=== PATIENT | male | born 2000 | race Caucasian/White ===

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

== ENCOUNTER 2021-05-04 20:22 | Emergency (ER) | payer BC, SELFPAY ==
[2021-05-04 20:45] VITALS: BP 145/97; PULSE 110; RESP 16; TEMP 36.6; O2SAT 98; BMI 36.0
--- NOTE | 2021-05-04 21:00 | HMH.EDUTC ---
[facility] [place] Disposition Clinical Impression: Viral syndrome, Exposure to COVID-19 virus Asthma Qualifiers: Asthma severity: unspecified severity Asthma persistence: unspecified Asthma complication type: unspecified Qualified Code(s): J45.909 - Unspecified asthma, uncomplicated Disposition: Home, Self-Care Condition on Discharge: Good Instructions: DI for COVID-19 (Suspected or Confirmed ), Preventing the Spread of Coronavirus Discharge Instructions Additional Instructions: Drink plenty of fluids. Take tylenol or ibuprofen for pain or fever. Take the medications as directed. Follow up with your regular doctor. GO TO THE ER FOR ANY WORSENING SYMPTOMS Quarantine until you know the results of your covid-19 test. If it is positive, the health department should call you and give you further instructions about your length of Quarantine and other things. Notify your school or workplace of your results and follow their instructions regarding return to work/school. Prescriptions: Brompheniramine/Pseudoephed/Dm [Bromfed Dm Cough Syrup] 5 ml PO Q6HP PRN #240 ml PRN Reason: Cough Transmission Status: Received by [id number] methylPREDNISolone [Medrol] 4 mg PO DIRECTED 6 Days #21 packet Transmission Status: Received by [id number] Azithromycin [Z-Talon 250mg Tab*] 250 mg PO UD DOSE PK #6 tab Transmission Status: Received by [id number] Referrals: Scott Viveros [Primary Care Provider] - Forms: Work/School Release Time of Disposition: 21:43 Medical Decision Making - Medical Records Medical records reviewed: No: I reviewed the patient's medical records. - Tre Inquiry Pt receiving controlled substance: No Vital Signs: 05/04/21 20:45 05/04/21 21:47 Temperature 98 F 98.0 F Temperature Source Oral Oral Pulse Rate 110 H Pulse Rate [Apical] 110 H Respiratory Rate 16 18 Blood Pressure 145/97 H Blood Pressure [Right Arm] 145/97 H Blood Pressure Mean [Right Arm] 113 Blood Pressure Source Automatic Cuff Blood Pressure Source [Right Arm] Automatic Cuff Blood Pressure Position Sitting Blood Pressure Position [Right Arm] Sitting 02 Sat by Pulse Oximetry 98 Oxygen Delivery Method Room Air Room Air - Lab Data Lab results reviewed: Yes: I reviewed the patient's lab results. Lab Results 05/04/21 21:48: Strep Scn Rapid Clinic Negative Orders (Tests/Meds): ORDERS Category Date Time Status Strep Screen Confirmation Stat Micro 05/04/21 21:48 Received [facility] HPI - General Stated complaint: covid test Time Seen by Provider: 05/04/21 21:01 Mode of Arrival: Ambulatory Source of Information: Patient Limitations: No Limitations Description of Symptoms (Recalled from Triage Doc. by RN): covid test HEENT Symptoms (Recalled from RN notes): Yes Resp Symptoms (Recalled from RN notes): Yes Skin Symptoms (Recalled from RN notes): No MS Symptoms (Recalled from RN notes): No Functional Status (Recalled from RN notes): na - History of Present Illness Provider Complaint: He states that he has felt congested, had a dry cough and ran a low grade fever since yesterday. His taste and smell has been altered today. He was exposed to covid-19 last week. - Related Data Previous Rx's Medication Instructions Recorded Azithromycin [Z-Talon 250mg Tab*] 250 mg PO UD DOSE PK #6 tab 05/04/21 Brompheniramine/Pseudoephed/Dm 5 ml PO Q6HP PRN #240 ml 05/04/21 [Bromfed Dm Cough Syrup] methylPREDNISolone [Medrol] 4 mg PO DIRECTED 6 Days #21 05/04/21 packet Allergies Allergy/AdvReac Type Severity Reaction Status Date / Time No Known Allergies Allergy Verified 11/27/18 09:53 - Worker's Comp Is this a Worker's Comp case?: No [facility] History - Hepatitis A Screen Drug use history?: No High risk sexual behaviors?: No History of sexually transmitted infection?: No Currently employed?: No Childcare worker?: Yes Do you have indoor plumbing?: No Do you have electricit
[2021-05-04 21:47] VITALS: BP 145/97; PULSE 110; RESP 18; TEMP 36.7; O2SAT 98
[2021-05-05 10:05] LABS: UTC Strep Screen (Rapid) Negative (Negative)
== END 2021-05-04 21:49 | disposition home or self-care (01) ==
PROVIDERS: Emergency Provider Nurse Practitioner Family; PCP Internal Medicine
DX: B34.9 Viral infection, unspecified (principal); Z20.822 Contact with and (suspected) exposure to COVID-19; J45.909 Unspecified asthma, uncomplicated
CPT/HCPCS: 87880; 99202; C9803; G0463; U0003; U0005

== ENCOUNTER 2021-06-25 14:09 | Emergency (ER) | payer BC, SELFPAY ==
[2021-06-25 14:52] VITALS: BMI 34.9
--- NOTE | 2021-06-25 14:53 | CT_ITS ---
PROCEDURE: CT HEAD/BRAIN WO CON CLINICAL INDICATION: syncopal epiosde COMPARISON: No exams were available for comparison TECHNIQUE: Axial images obtained. All CT scans at the facility use one or more dose reduction, viz: automated exposure control, ma/kV adjustment per patient size (including targeted exams where dose is matched to indication, i.e. head), or iterative reconstruction technique. FINDINGS: No midline shift, mass effect, intracranial hemorrhage, hydrocephalus, or extra-axial fluid collection is evident. The calvarium has an unremarkable appearance. No mastoid effusion. No sinus air-fluid level. IMPRESSION: No acute intracranial finding Dictated by: Sigifredo Auguste MD 06/25/2021 16:11 Sigifredo Auguste MD in [place] 06/25/2021 16:11
--- NOTE | 2021-06-25 14:53 | CT_ITS ---
PROCEDURE: CT CERVICAL SPINE WO CON CLINICAL INDICATION: syncopal epiosde COMPARISON: No exams were available for comparison TECHNIQUE: Axial images obtained with sagittal and coronal reformats. All CT scans at the facility use one or more dose reduction, viz: automated exposure control, ma/kV adjustment per patient size (including targeted exams where dose is matched to indication, i.e. head), or iterative reconstruction technique. Axial spiral CT scanning performed of the cervical spine beginning at the base of the skull and continuing to the upper T-spine. 3-D multiplanar reconstruction with 3-D manipulation of volumetric data set in image rendering was completed by the radiologist and/or technologist with the supervision of the radiologist on independent workstation. FINDINGS: Normal alignment. No acute fracture or dislocation. There is mild foraminal narrowing on the right and C3-C4. No lytic or blastic change. Lung apices are clear. IMPRESSION: No acute fracture Dictated by: Sigifredo Auguste MD 06/25/2021 16:14 Sigifredo Auguste MD in [place] 06/25/2021 16:14
[2021-06-25 15:00] VITALS: BP 145/91; PULSE 88; RESP 16; TEMP 36.8; O2SAT 97; BMI 34.9
--- NOTE | 2021-06-25 15:00 | HMH.EDGENADL ---
ED Disposition Clinical Impression: Syncope and collapse Disposition: Home, Self-Care Condition on Discharge: Good Instructions: DI for Syncope in Adults (Fainting) Additional Instructions: Call your primary care doctor tomorrow to arrange follow-up appointment. Return to the emergency department if fainting recurs. Referrals: Scott Viveros [Primary Care Provider] - - Critical Care Critical Care Time: No Attestation: On 06/25/21, the high probability of a clinically significant, sudden or life threatening deterioration of the following system(s) required my full and direct attention, intervention and personal management. The time I documented below is in addition to time spent performing reported procedures but includes the following listed in this critical care notation. Medical Decision Making - Tre Inquiry Pt receiving controlled substance: No Vital Signs: 06/25/21 15:00 06/25/21 15:16 06/25/21 16:35 Temperature 98.2 F Temperature Source Oral Pulse Rate [Orthostatic Lying Right Brachial] 84 Pulse Rate [Orthostatic Sitting Left Brachial] 85 Pulse Rate [Orthostatic Standing Right Brachial] 84 Pulse Rate [Right] 88 80 Respiratory Rate 16 16 Blood Pressure [Orthostatic Lying Right Arm] 146/87 H Blood Pressure [Orthostatic Sitting Right Arm] 144/84 H Blood Pressure [Orthostatic Standing Right Arm] 146/88 H Blood Pressure [Right Arm] 145/91 H 132/70 Blood Pressure Mean [Right Arm] 109 90 Blood Pressure Source [Right Arm] Automatic Cuff Automatic Cuff Blood Pressure Position [Right Arm] Sitting Sitting 02 Sat by Pulse Oximetry 97 98 Oxygen Delivery Method Room Air Room Air 06/25/21 17:39 Temperature Temperature Source Pulse Rate [Orthostatic Lying Right Brachial] Pulse Rate [Orthostatic Sitting Left Brachial] Pulse Rate [Orthostatic Standing Right Brachial] Pulse Rate [Right] 70 Respiratory Rate 16 Blood Pressure [Orthostatic Lying Right Arm] Blood Pressure [Orthostatic Sitting Right Arm] Blood Pressure [Orthostatic Standing Right Arm] Blood Pressure [Right Arm] 135/72 Blood Pressure Mean [Right Arm] 93 Blood Pressure Source [Right Arm] Automatic Cuff Blood Pressure Position [Right Arm] Sitting 02 Sat by Pulse Oximetry 100 Oxygen Delivery Method Room Air - Lab Data Lab Results 06/25/21 14:48: WBC 8.6, RBC 5.40, Hgb 15.1, Hct 44.3, MCV 82.0, MCH 28.0, MCHC 34.2, RDW 13.7, Plt Count 322, MPV 7.7, Neut % (Auto) 67.7, Lymph % (Auto) 23.6, [place] % (Auto) 4.8, Eos % (Auto) 3.0, Baso % (Auto) 0.9, Neut # (Auto) 5.8, Lymph # (Auto) 2.0, [place] # (Auto) 0.4, Eos # (Auto) 0.3, Baso # (Auto) 0.1 06/25/21 14:48: Sodium 140, Potassium 3.8, Chloride 103, Carbon Dioxide 29, Anion Gap 11.8, BUN 9, Creatinine 0.90, Estimated Creat Clear 223, Estimated GFR 108, Est GFR ( Amer) 130, Glucose 102 H, Calcium 9.5, Total Bilirubin 0.5, AST 35, ALT 45, Alkaline Phosphatase 51, Total Protein 7.2, Albumin 4.5, Globulin 2.7, Albumin/Globulin Ratio 1.7 06/25/21 16:28: Urine Color Yellow, Urine Appearance Clear, Urine pH 7.0, Ur Specific [place] 1.020, Urine Protein Negative, Urine Glucose (UA) Negative, Urine Ketones Negative, Urine Blood Negative, Urine Nitrate Negative, Urine Bilirubin Negative, Urine Urobilinogen 0.2, Ur Leukocyte Esterase Negative, Urine RBC None, Urine WBC Occasional, Ur Squamous Epith Cells None, Urine Bacteria Trace 06/25/21 16:28: Urine Opiates Screen Negative, Urine Methadone Screen Negative, Ur Barbituates Screen Negative, Ur Phencyclidine Scrn Negative, Ur Amphetamines Screen Negative, U Benzodiazepines Scrn Negative, Urine Cocaine Screen Negative, U Marijuana (THC) Screen Negative Result diagrams: 06/25/21 14:48 06/25/21 14:48 - CT Data CT Scan: Head, C-Spine Time Received: 16:[address] Reviewed: Yes: I have viewed the radiologist's interpretation Findings Narrative: PROCEDURE: CT HEAD/BRAIN WO CON CLINICAL INDICATION: syncopal epiosde COMPARISON:
[2021-06-25 15:04] LABS: Basophils # 0.1 K/mm3 (0-0.2); Basophils % 0.9 % (0.1-2.0); Eosinophils # 0.3 K/mm3 (0.0-0.4); Hematocrit 44.3 % (42.0-52.0); Hemoglobin 15.1 g/dL (14.1-18.0); Lymphocytes % 23.6 % (10-50); Mean Corpuscular HGB Conc 34.2 g/dL (31.8-35.4); Mean Platelet Volume 7.7 fl (7.4-10.4); Monocytes # 0.4 K/mm3 (0.1-1.0); Monocytes % 4.8 % (1.7-9.3); Neutrophils # 5.8 K/mm3 (1.8-7.8); Neutrophils % 67.7 % (37.0-80.0); Platelet Count 322 K/mm3 (142-424); Red Cell Distribution Width 13.7 % (11.5-17.5); White Blood Count 8.6 K/mm3 (4.5-13.0)
[2021-06-25 15:09] LABS: Alanine Aminotransferase 45 U/L (12-78); Albumin Level 4.5 g/dl (3.5-5.0); Albumin/Globulin Ratio 1.7 (1.1-1.8); Alkaline Phosphatase 51 U/L (38-126); Anion Gap 11.8 mEq/L (5-15); Aspartate Amino Transferase 35 U/L (17-59); Bilirubin,Total 0.5 mg/dl (0.2-1.3); Blood Urea Nitrogen 9 mg/dl (9-20); Calcium 9.5 mg/dl (8.4-10.2); Carbon Dioxide 29 mmol/L (22.0-30.0); Chloride 103 mmol/L (98-107); Creatinine Clearance Estimated 223 mL/min (50-200); Estimated Glomerular Filt Rate 108 ml/min (>60); GFR (African American) 130 ML/MIN (>60); Globulin 2.7 g/dL (1.3-3.2); Glucose 102 mg/dl (74-100); Potassium 3.8 mmoL/L (3.5-5.1); Sodium 140 mmol/L (136-145); Total Protein,Serum 7.2 g/dl (6.3-8.2)
[2021-06-25 15:16] VITALS: BP 144/84; BP 146/87; BP 146/88; PULSE 84; PULSE 85
--- NOTE | 2021-06-25 15:43 | ECG_ITS ---
APPROVED REPORT Exam: Resting ECG HR:61 bpm ECG Measurements Heart Rate 61 AXES VT 154 P 66 QRSd 96 QRS 79 QT 396 T 59 QTc 398 Conclusion Normal sinus rhythm Early repolarization Normal ECG Electronically signed by : Jordin Slaughter MD 06/26/2021 13:51:42
[2021-06-25 16:35] VITALS: BP 132/70; PULSE 80; RESP 16; O2SAT 98
[2021-06-25 16:36] LABS: Microscopic, Urine URINE MICROSCOPIC (MICROSCOPIC)
[2021-06-25 16:40] LABS: Appearance,Urine CLEAR (Clear); Bilirubin,Urine Negative (Negative); Blood, Urine Negative (Negative); Color,Urine YELLOW (Yellow); Glucose,Urine (UA) Negative (Negative); Ketones,Urine Negative (Negative); Leukocyte Esterase,Urine Negative (Negative); Nitrate,Urine Negative (Negative); Protein,Urine Negative (Negative); Urobilinogen,Urine 0.2 EU/dl (0.2)
[2021-06-25 16:52] LABS: Barbiturates Screen,Urine Negative ng/ml (<200); Benzodiazepines Screen,Urine Negative ng/ml (<200)
[2021-06-25 16:53] LABS: Amphetamine/Metha Screen,Urine Negative ng/ml (<1000); Methadone Screen,Urine Negative ng/ml (<300)
[2021-06-25 16:54] LABS: Cannabinoid Screen,Urine Negative ng/ml (<50)
[2021-06-25 16:55] LABS: Bacteria,Urine Trace /lpf; Cocaine Screen,Urine Negative ng/ml (<300); Opiate Screen,Urine Negative ng/ml (<300); WBC,Urine Occasional #/hpf (0-3)
[2021-06-25 16:56] LABS: Phencyclidine Screen,Urine Negative ng/ml (<25)
[2021-06-25 17:39] VITALS: BP 135/72; PULSE 70; RESP 16; O2SAT 100
[2021-06-25 18:15] VITALS: BP 133/74; PULSE 70; RESP 16; TEMP 36.8; O2SAT 98
== END 2021-06-25 18:16 | disposition home or self-care (01) ==
LOC: UTC 14:14 → ER 14:22
PROVIDERS: Emergency Provider Emergency Medicine; PCP Internal Medicine
DX: R55 Syncope and collapse (principal); I16.0 Hypertensive urgency
CPT/HCPCS: 70450; 72125; 80053; 80305; 81001; 85025; 93005; 99284

== ENCOUNTER → 2021-07-01 09:39 | Outpatient (CLI) | payer BC, SELFPAY ==
--- NOTE | 2021-07-01 | CA_ITS ---
APPROVED REPORT Exam: Exercise Treadmill Technologist: Sunni Membreno, Ht: 5 ft 11 in Wt: 265 lbs BSA: 2.38 m2 HR: 83 bpm BP: 132/87 mmHg Rhythm: NSR, ST ABNS INFERIORLY Medical History Medications: Zoloft,,,,, Meclizine,,,,, Stress Test Details Test: Christelle HR Resting HR: 97 bpm Max Heart Rate (APMHR): 200.415295 bpm Max HR Achieved: 180 bpm Target HR (85% APMHR): 170.628902 bpm % of APMHR: 90.00 Recovery HR: 119 bpm BP Resting BP: 132/87 mmHg Max BP: 200/86 mmHg Recovery BP: 150.0/86.0 mmHg ECG Resting ECG: NSR, ST ABNS INFERIORLY Clinical Exercise duration: 07:03 min Highest Stage Achieved: Exercise capacity: 10.1 METs Stress ECG Conclusion EXERCISED 7:03 ON CHRISTELLE PROTOCOL. PT HAD CHEST TIGHTNESS, SOA, DIZZINESS, LIGHT HEADED. OCCASIONAL TO MODERATELY FREQUENT PVCS. EXAGGERATION OF BASELINE ST ABNS INFERIORLY. OTHERWISE NORMAL ST RESPONSE TO EXERCISE. VARIOUS SX NOTED ABOVE. PROBABLY NORMAL EKGS. GXT ONLY (NO IMAGING) Test Summary RECOVERY 02:00 0.0 0.0 141 . 150/ 80 . . REST . . . . . . . Sitting REST 04:13 0.0 0.0 97 . 132/ 87 . . Stage 1 01:00 10.0 1.7 110 . . . . Stage 1 02:00 10.0 1.7 113 . . . . Stage 1 03:00 10.0 1.7 127 . 154/ 84 . . Stage 2 01:00 12.0 2.5 147 . . . . Stage 2 02:00 12.0 2.5 160 . . . . Stage 2 03:00 12.0 2.5 164 . 200/ 86 . . Stage 3 01:00 14.0 3.4 175 . . . . Stage 3 01:03 14.0 3.4 176 . . . Stop exercise at 07:03 RECOVERY 01:00 0.0 0.0 160 . . . . RECOVERY 02:00 0.0 0.0 141 . 150/ 80 . . RECOVERY 03:00 0.0 0.0 129 . 171/ 94 . . RECOVERY 04:00 0.0 0.0 124 . 171/ 94 . . RECOVERY 05:00 0.0 0.0 130 . 157/ 88 . . RECOVERY 06:00 0.0 0.0 122 . 157/ 88 . . RECOVERY 07:00 0.0 0.0 118 . 157/ 88 . . RECOVERY 08:00 0.0 0.0 124 . 150/ 86 . . RECOVERY 08:06 0.0 0.0 123 . 150/ 86 . . Electronically signed by : Tim Beatty MD 07/02/2021 04:45:42
--- NOTE | 2021-07-01 10:34 | CA_ITS ---
APPROVED REPORT EXAM: Comprehensive 2D, Doppler, and color-flow Echocardiogram Tumbling Barrel Painter: NATHALIE Brown, RVS Ht: 6 ft 0 in Wt: 270lbs BSA: 2.42 BP: 132/70 mmHg Indications: Syncope, dizziness, Abn EKG Echo Enhancing Agent Comments: Pt refused IV access for a bubble study today. 2D Dimensions LVDs 3.12 cm LA Volume 53.40 mL Left Atrium 2.55 cm LA Volume Index 22.10 mL/m2 (M/F) 16-34 LVOT 1.99 cm (M/F) 1.5-2.5 M-Mode Dimensions RVDd 2.57 cm (0.9-2.6) LA Diam 3.61 cm (1.9-4.0) LVDd 4.06 cm (3.5-5.7) Ao Diam 3.21 cm (2.0-3.7) LVDs 3.09 cm (3.5-5.7) IVSd 1.08 cm (0.6-1.1) PWd 1.08 cm (0.6-1.1) EF (Teich) 48.10% EPSs 0.56 cm FS 23.90% EDV (Teich) 72.50 mL TAPSE 1.69 (<1.7) ESV (Teich) 37.60 mL LV Diastology E Decel Time 173.00 (160-240 msec) E/A Ratio 1.43 MED E' 9.30 (< 7 cm/sec) MED A' 10.50 cm/s E'/MED E' Ratio 8.48 (>14) LAT E' 15.60 (<10 cm/sec) LAT A' 6.60 cm/s E/LAT E' Ratio 5.06 (>14) Aortic Valve LVOT Max 93.00 (70-110 cm/s) LVOT VTI 19.24 cm AoV Peak David. 129.00 (50-130 cm/s) AO Peak GR. 6.70 mmHg AO Mean GR. 3.30 (<5 mmHg) AO VTI 23.05 (18-25 cm) YEISON (VTI) 2.60 (2.5-4.5 cm2) Mitral Valve MV A Velocity 55.00 (40-130 cm/s) E/A Ratio 1.43 MV Decel. Time 173.00 (160-240 ms) Pulmonary Valve PV Peak Velocity 85.00 (50-150 cm/s) SD End VMAX 159.00 cm/s Tricuspid Valve TR P. Velocity 214.00 cm/s RAP Estimate 10.00 mmHg RVSP 28.30 mmHg Left Ventricle Technically difficult study because of the patient factors and poor acoustic windows. An echodensity seen on the lateral wall which is likely an artifact. Normal left ventricular size, likely preserved left ventricular systolic function, visually estimated ejection fraction 55% with no regional wall motion abnormality, diastolic parameters are within normal range, repeat study with Definity contrast is recommended to delineate the endocardial borders further. Right Ventricle Right atrium and right ventricle are normal size and contractility. Aortic Valve Aortic valve is grossly normal, there is no aortic stenosis or aortic insufficiency. Mitral Valve Mitral valve grossly normal, there is trace mitral regurgitation. Tricuspid Valve Tricuspid valve grossly normal, there is trace tricuspid regurgitation, tricuspid regurgitation jet velocity is inadequate for calculation of the right ventricular systolic pressure. Pulmonic Valve Pulmonic valve is poorly visualized. Great Vessels Aortic root is normal size. Inferior vena cava normal size with normal inspiratory collapse. Pericardium No significant pericardial effusion noted. Conclusion 1. Normal left ventricular size, preserved left ventricular systolic function, visually estimated ejection fraction 55% with no regional wall motion abnormality, diastolic parameters are within normal range. Technically difficult study, repeat study with Definity contrast is recommended to define the endocardial border, and exclude the presence of echodense structure obscuring the lateral wall. 2. Trace mitral and tricuspid regurgitation. 3. No significant pericardial effusion noted 4. Inferior vena cava is normal size with normal inspiratory collapse. Electronically signed by : Tim Beatty MD 07/02/2021 05:29:41
== END ==
PROVIDERS: PCP Internal Medicine; Visit Provider Internal Medicine
DX: R55 Syncope and collapse (principal)
CPT/HCPCS: 93017; 93306

== ENCOUNTER → 2023-01-05 16:20 | Outpatient (CLI) | payer BC, SELFPAY ==
[2023-01-05 17:21] LABS: Basophils % 0.5 % (0.1-2.0); Eosinophils # 0.3 K/mm3 (0.0-0.4); Eosinophils % 3.5 % (0.1-12.0); Hematocrit 46.5 % (42.0-52.0); Hemoglobin 15.6 g/dL (14.1-18.0); Lymphocytes # 2.1 K/mm3 (0.7-4.5); Lymphocytes % 25.7 % (10-50); Mean Corpuscular HGB Conc 33.6 g/dL (31.8-35.4); Mean Corpuscular Hemoglobin 27.5 pg (27.0-31.2); Mean Corpuscular Volume 81.8 fl (80-94); Mean Platelet Volume 8.1 fl (7.4-10.4); Monocytes # 0.5 K/mm3 (0.1-1.0); Monocytes % 6.5 % (1.7-9.3); Neutrophils # 5.3 K/mm3 (1.8-7.8); Neutrophils % 63.8 % (37.0-80.0); Platelet Count 309 K/mm3 (142-424); Red Blood Count 5.68 M/mm3 (4.60-6.20); Red Cell Distribution Width 13.6 % (11.5-17.5); White Blood Count 8.4 K/mm3 (4.8-10.8)
== END ==
PROVIDERS: PCP Internal Medicine; Visit Provider Internal Medicine
DX: K62.5 Hemorrhage of anus and rectum (principal)
CPT/HCPCS: 85025

== ENCOUNTER 2023-11-18 16:59 | Emergency (ER) | payer OTHER, SELFPAY ==
[2023-11-18 17:06] VITALS: BMI 35.9
--- NOTE | 2023-11-18 17:07 | XR_ITS ---
PROCEDURE INFORMATION: Exam: XR Left Wrist Exam date and time: 11/18/2023 5:08 PM Age: 23 years old Clinical indication: Pain; Left; Patient HX: Picked up a bag of dog food at work & heard a pop in wrist/hand. C/O numbness in fingers; Additional info: Wc injury TECHNIQUE: Imaging protocol: Radiologic exam of the left wrist. Views: 3 or more views. COMPARISON: CR XR HAND LT MIN 3V 11/18/2023 5:08 PM FINDINGS: Bones/joints: Normal. Soft tissues: Normal. IMPRESSION: No acute findings.
--- NOTE | 2023-11-18 17:07 | XR_ITS ---
PROCEDURE INFORMATION: Exam: XR Left Hand Exam date and time: 11/18/2023 5:08 PM Age: 23 years old Clinical indication: Pain; Hand; Left; Patient HX: Picked up a bag of dog food at work & felt a pop. ; Additional info: Wc injury TECHNIQUE: Imaging protocol: Radiologic exam of the left hand. Views: 3 or more views. COMPARISON: No relevant prior studies available. FINDINGS: Bones/joints: Normal. Soft tissues: Normal. IMPRESSION: No acute findings.
[2023-11-18 17:20] VITALS: BP 153/79; PULSE 82; RESP 20; TEMP 36.9; O2SAT 98; BMI 39.3
--- NOTE | 2023-11-18 17:27 | EXP.UTC ---
Discharge Plan Disposition Patient Disposition: Home, Self-Care Condition: Good Prescriptions Prescriptions: New ibuprofen [IBU] 800 mg tablet 800 mg PO Q8HP PRN (Reason: Moderate Pain) Qty: 30 0RF No Action venlafaxine [Effexor XR] 37.5 mg Capsule,Extended Release 24hr 37.5 mg PO DAILY omeprazole 20 mg Capsule,Delayed Release(Dr/Ec) 20 mg PO DAILY Referrals Follow up/Referrals: Scott Viveros MD [Primary Care Provider] - See instructions Rei Page DO [Staff Physician] - See instructions Activity Restrictions/Add. Instructions Additional Instructions/Restrictions: Rest the extremity, Elevate the extremity as tolerated while you are resting. Take ibuprofen for pain. I sent in a prescription to your pharmacy. Follow up with Dr. Page (orthopedics). Sometimes there can be fractures that don't show up well on the first set of x-rays. So, you should follow up if you continue to have symptoms. I put in a referral but you need to call his office and schedule an appointment. Follow up with your regular doctor. GO TO THE ER FOR ANY WORSENING SYMPTOMS Clinical Impressions Clinical Impression: Left hand tendonitis, Hand pain, left Stand Alone Forms Stand Alone Forms: Work/School Release Instructions Patient Instructions: DI for Tendinitis, DI for Hand Pain Discharge ED Provider: Nic Graham [facility] General Stated complaint: WC 11/18/23 1510 Left Hand injury Time Seen by Provider: 11/18/23 17:13 History of Present Illness Provider Complaint: He states that he was at work when he lifted a heavy bad of dog food with his left arm. He immediately felt something pull and tear in his left hand. He then immediately began having pain that is located in his wrist and the palm of his hand. He states that his pain is worse when he bends and straightens his fingers or moves his wrist. He denies other complaints or injuries. Related Data Home Medications Medication Instructions Recorded Confirmed omeprazole 20 mg capsule,delayed 20 mg PO DAILY 11/18/23 11/18/23 release venlafaxine 37.5 mg 37.5 mg PO DAILY 11/18/23 11/18/23 capsule,extended release 24 hr (Effexor XR) Previous Rx's Medication Instructions Recorded ibuprofen 800 mg tablet (IBU) 800 mg PO Q8HP PRN Moderate Pain 11/18/23 #30 tabs Allergies Allergy/AdvReac Type Severity Reaction Status Date / Time No Known Allergies Allergy Verified 11/27/18 09:53 [facility] Disclaimer: The information contained in this section may have been updated after the patient was seen, as this information can be updated by other users. Medical History (Updated 11/18/23 @ 17:50 by Nic Graham APRN) History of gastroesophageal reflux (GERD) Social History Smoking Status: Never smoker alcohol intake: never current occupational status: employed Travel in the last 8 weeks: None ROS Obtained: Yes All systems reviewed & no additional complaints except as documented Constitutional Constitutional: Denies chills and Denies fever(s) Eyes Eyes: Denies eye discharge ENT Ears, Nose, Mouth, and Throat: Denies dizziness, Denies otalgia and Denies sore throat Cardiovascular Cardiovascular: Denies chest pain Respiratory Respiratory: Denies shortness of breath, Denies chest congestion, Denies cough, Denies stridor and Denies wheezing Gastrointestinal Gastrointestingal: Denies nausea or vomiting Musculoskeletal Musculoskeletal: Reports as per HPI Integumentary/Breasts Skin/Breast: Denies rash Neurologic Neurologic: Denies dizziness and Denies paresthesias Allergic/Immunologic Allergic/Immunologic: Denies wheezing Physical Exam General General appearance: alert and in no apparent distress Head Head exam: atraumatic, normocephalic and normal inspection Eye Eye exam: Present normal appearance, PERRL and EOMI ENT ENT exam: Present normal exam, normal oropharynx, mucous membranes moist, TM's normal bilaterally and normal external ear exam Neck Neck exam: Present normal inspection, full ROM and trachea midline; Absent meningismus or lymphadenopathy Chest Chest inspection: Present normal inspection and symmetric chest wall rise; Absent tenderness Respiratory Respiratory exam: Present normal lung sounds bilaterally; Absent respiratory distress Cardiovascular Cardiovascular exam: Present regular rate and normal rhythm; Absent JVD Abdominal Exam Abdominal exam: Present soft and normal bowel sounds; Absent distention, tenderness or guarding Extremities Exam Extremities exam: Present normal inspection, full ROM and normal capillary refill; Absent calf tenderness Back Exam Back exam: Present normal inspection; Absent tenderness Neurological Exam Neurological exam: Present alert and oriented X3 Psychiatric Psychiatric exam: Present normal affect and normal mood Skin Skin exam: Present warm, dry, intact and normal color Lymphatic Lymphatic Findings: no adenopathy Medical Decision Making Medical Records Medical records reviewed: No I reviewed the patient's medical records. Tre Inquiry Pt receiving controlled substance: No Orders (Tests/Meds): ORDERS Category Date Time Status Wrist XR left minimum 3 views [XR wrist LT min 3V] Stat Exams 11/18/23 17:07 Ordered XR hand LT min 3V Stat Exams 11/18/23 17:07 Ordered Radiology Data #1: Image(s): Hand Image Reviewed: Yes I reviewed the patient's radiology image and Yes I have reviewed radiologist's interpretation Preliminary Findings: No Fracture Seen PROCEDURE INFORMATION: Exam: XR Left Hand Exam date and time: 11/18/2023 5:08 PM Age: 23 years old Clinical indication: Pain; Hand; Left; Patient HX: Picked up a bag of dog food at work & felt a pop. ; Additional info: Wc injury TECHNIQUE: Imaging protocol: Radiologic exam of the left hand. Views: 3 or more views. COMPARISON: No relevant prior studies available. FINDINGS: Bones/joints: Normal. Soft tissues: Normal. IMPRESSION: No acute findings. #2: Image(s): Wrist Image Reviewed: Yes I reviewed the patient's radiology image and Yes I have reviewed radiologist's interpretation Preliminary Findings: No Fracture Seen PROCEDURE INFORMATION: Exam: XR Left Wrist Exam date and time: 11/18/2023 5:08 PM Age: 23 years old Clinical indication: Pain; Left; Patient HX: Picked up a bag of dog food at work & heard a pop in wrist/hand. C/O numbness in fingers; Additional info: Wc injury TECHNIQUE: Imaging protocol: Radiologic exam of the left wrist. Views: 3 or more views. COMPARISON: CR XR HAND LT MIN 3V 11/18/2023 5:08 PM FINDINGS: Bones/joints: Normal. Soft tissues: Normal. IMPRESSION: No acute findings. Procedures Risk/Benefits of Procedure(s) Were Explained: Yes Orthopedic Splinting/Casting Injury #1: Side: left Upper Extremity Injury Location: wrist and hand Upper Extremity Immobilizer: volar splint Post Cast/Splinting Neuro Status: intact and no change Post Cast/Splinting Vasc Status: intact and no change
[2023-11-18 17:54] VITALS: BP 153/79; PULSE 82; RESP 20; TEMP 36.9; O2SAT 98
== END 2023-11-18 17:59 | disposition home or self-care (01) ==
PROVIDERS: Emergency Provider Nurse Practitioner Family; PCP Internal Medicine
DX: M79.642 Pain in left hand (principal); M67.942 Unspecified disorder of synovium and tendon, left hand; X50.0XXA Overexertion from strenuous movement or load, initial encounter
CPT/HCPCS: 73110; 73130; 99212; 99214; G0463